=== PATIENT | female | born 1960 | race Caucasian/White ===

== ENCOUNTER 2019-07-28 18:31 | Emergency (ER) | payer OTHER, SELFPAY ==
[2019-07-28] VITALS (9 sets, daily range): BP systolic 124–217; BP diastolic 71–97; PULSE 69–98; RESP 14–24; TEMP 37.1; O2SAT 96–99; BMI 32.0
--- NOTE | 2019-07-28 18:36 | DI.RAD.S_ITS ---
PROCEDURE: XR CHEST 1V INDICATIONS: chest pain TECHNIQUE: One view of the chest was acquired. COMPARISON: None. FINDINGS: Surgical changes and devices: None. Lungs and pleura: Lungs are clear. No pleural effusions or pneumothorax. Mediastinum: Mediastinal contours appear normal. Heart size is normal. Bones and chest wall: No suspicious bony lesions. Overlying soft tissues appear unremarkable. IMPRESSION: No acute cardiopulmonary disease Dictated by: Khai Titus M.D. on 07/28/2019 at 18:55 Approved by: Khai Titus M.D. on 07/28/2019 at 18:56
--- NOTE | 2019-07-28 19:00 | ED_ITS ---
HPI - Chest Pain General Chief Complaint: Chest Pain Stated Complaint: CP Time Seen by Provider: 07/28/19 18:40 Source: patient Mode of arrival: Family Vehicle Limitations: no limitations History of Present Illness HPI narrative: 58-year-old female smoker with history of hypertension and hyperlipidemia presents with her in the chief complaint of increasing frequency of episodes of anterior chest pressure with radiation to left shoulder and at times right shoulder. She denies any exertional provocation and denies any palliation, admits only to the radiation stated above. Patient had provocative testing about a year and a half ago which turned out well. She did have a DVT in the aftermath of the surgery years ago but denies any history of pulmonary embolism. She is not dizzy, weak or lightheaded. She exercises frequently and denies any exertional dyspnea or profound fatigue worsening over the past days to weeks. Currently her pressure is 8/10 MD complaint: chest pain Onset (ago): day(s) Duration: intermittent and progressively worsening Pain location: substernal and left chest Severity: moderate Quality: tightness and aching Pain radiation: RUE and LUE Relieving factors: nothing Exacerbating factors: nothing Treatments prior to arrival chest pain: none Related Data On Oral Contraceptives: No Allergies Allergy/AdvReac Type Severity Reaction Status Date / Time Sulfa (Sulfonamide Allergy Swelling Verified 07/28/19 18:44 Antibiotics) of Lip/Tongue/Throat Review of Systems Constitutional Constitutional: Denies chills, Denies fatigue, Denies fever(s), Denies frequent falls, Denies lethargy and Denies weakness Eyes Eyes: Denies change in vision, Denies eye discharge, Denies irritation and Denies loss of vision ENT Ears, Nose, Mouth, and Throat: Denies change in voice, Denies dizziness, Denies neck pain, Denies sore throat and Denies throat swelling Cardiovascular Cardiovascular: Reports chest pain, Denies irregular heart rhythm, Denies lightheadedness, Denies palpitations, Denies dyspnea, Denies dyspnea on exertion and Denies orthopnea Respiratory Respiratory: Denies cough, Denies dyspnea, Denies dyspnea on exertion and Denies wheezing Gastrointestinal Gastrointestinal: Denies abdominal pain, Denies change in bowel habits, Denies diarrhea, Denies nausea and Denies vomiting Genitourinary Genitourinary: Denies hematuria, Denies flank pain, Denies urinary incontinence and Denies urinary urgency Musculoskeletal Musculoskeletal: Denies back pain, Denies muscle weakness, Denies neck pain, Denies numbness and Denies tingling Integumentary/Breasts Skin/Breast: Denies pruritus, Denies erythema, Denies rash and Denies wounds Neurologic Neurologic: Denies behavioral changes, Denies confusion, Denies dizziness, Denies frequent falls, Denies loss of vision, Denies numbness, Denies tingling and Denies weakness Psychiatric Psychiatric: Denies anxiety, Denies behavioral changes, Denies confusion, Denies depression, Denies homicidal ideation and Denies suicidal ideation Endocrine Endocrine: Denies fatigue, Denies flushing and Denies palpitations Hematologic/Lymphatic Hematologic/Lymphatic: Denies easy bruising Allergic/Immunologic Allergic/Immunologic: Denies urticaria, Denies throat swelling and Denies wheezing Patient History Social History Smoking Status: Current some day smoker Smoking Status: Current some day smoker alcohol intake frequency: 0-2 drinks per day Substance Use Type: does not use Exam Narrative Exam Narrative: GENERAL: [58] year old patient appears stated age. Well- nourished, well-developed patient, in mild distress. HEAD: Atraumatic. Normocephalic. EYES: Pupils equal round and reactive. Extraocular motions intact. No scleral icterus. No injection or drainage. ENT: Nose without bleeding, purulent drainage. Throat without erythema, tonsillar hypertrophy or exudate. Airway patent. NECK: Trachea midline. Non tender CARDIOVASCULAR: Regular rate and rhythm without murmurs, gallops, or rubs. RESPIRATORY: Clear to auscultation. Breath sounds equal bilaterally. No wheezes, rales, or rhonchi. GASTROINTESTINAL: Abdomen soft, non-tender, nondistended. EXTREMITIES: No edema or joint tenderness. BACK: Nontender without deformity or crepitance. No flank tenderness. NEURO: AOx3. SKIN: No rash or erythema of visible areas Initial Vital Signs Initial Vital Signs: Vital Signs Temperature 98.7 F 07/28/19 18:38 Pulse Rate 98 H 07/28/19 18:38 Respiratory Rate 19 07/28/19 18:38 Blood Pressure 185/91 H 07/28/19 18:38 Pulse Oximetry 99 07/28/19 18:38 Course Orders Ordered: Discontinued Medications Aspirin (Aspirin Chew) 324 mg PO NOW ONE Stop: 07/28/19 19:21 Last Admin: 07/28/19 19:32 Dose: 324 mg Documented by: GLENN Clopidogrel Bisulfate (Plavix) 300 mg PO NOW ONE Stop: 07/28/19 20:04 Last Admin: 07/28/19 20:13 Dose: 300 mg Documented by: GLENN Heparin Sodium (Porcine) (Heparin) 4,000 unit IV NOW ONE Stop: 07/28/19 19:41 Last Admin: 07/28/19 19:52 Dose: 4,000 unit Documented by: GLENN Heparin Sodium/Dextrose (Heparin Drip) 25,000 unit in 500 mls @ 19.051 mls/hr IV CONT JULIANNE; Protocol Last Titration: 07/28/19 21:50 Dose: 12 units/kg/hr, 19.051 mls/hr Documented by: Admin: 07/28/19 19:53 Dose: 12 units/kg/hr, 19.051 mls/hr Documented by: GLENN Metoprolol Tartrate (Lopressor) 5 mg IV Q5M JULIANNE Stop: 07/28/19 19:41 Last Admin: 07/28/19 19:34 Dose: 5 mg Documented by: GLENN Metoprolol Tartrate (Lopressor) 25 mg PO NOW ONE Stop: 07/28/19 20:04 Last Admin: 07/28/19 21:01 Dose: 25 mg Documented by: GLENN Nitroglycerin (Nitrostat) 0.4 mg SL [id number] PRN PRN Reason: Chest Pain Last Admin: 07/28/19 19:42 Dose: 0.4 mg Documented by: Admin: 07/28/19 19:32 Dose: 0.4 mg Documented by: GLENN Nitroglycerin (Nitro-Bid) 0.5 inch TOP NOW ONE Stop: 07/28/19 20:04 Last Admin: 07/28/19 20:13 Dose: 0.5 inch Documented by: GLENN Reevaluation(s) Reevaluation #1: patient improved pain after NG, down to 6 pain down to zero after 3rd NG and paste Consultations Consultation #1: Call to [facility] hospitalist. Given concerning story, consistent with unstable angina patient will require inpatient Cardiology and very likely heart catheterization Consultation #2: Call to on-call Cardiology, he agrees with assessment, recommends patient be sent to [facility]. Recommends heparin, Plavix, oral metoprolol in addition to the above-stated therapies Consultation #3: Hospitalist at [facility] happy to accept Vital Signs Vital signs: Vital Signs - 8 hr 07/28/19 18:38 07/28/19 19:32 07/28/19 19:42 Temperature 98.7 F Pulse Rate 98 H 95 H Respiratory Rate 19 Blood Pressure 185/91 H 217/97 H 160/84 H Blood Pressure [Left Arm] Pulse Oximetry 99 07/28/19 19:59 07/28/19 20:13 07/28/19 21:00 Temperature Pulse Rate 74 79 73 Respiratory Rate 16 24 Blood Pressure 174/91 H Blood Pressure [Left Arm] 149/81 H 124/71 Pulse Oximetry 98 96 07/28/19 21:05 07/28/19 21:15 Temperature Pulse Rate 72 69 Respiratory Rate 21 14 Blood Pressure Blood Pressure [Left Arm] 138/88 142/81 H Pulse Oximetry 97 96 MDM - Chest Pain Lab Data Result diagrams: 07/28/19 18:56 07/28/19 18:56 Labs: Lab Results 07/28/19 07/28/19 07/28/19 Range/Units 18:05 18:56 18:56 WBC 7.8 (4.5-11.0) X10^3/uL RBC 4.28 (4.0-5.2) X10^6/uL Hgb 13.6 (12.0-16.0) g/dL Hct 39.2 (36-46) % MCV 91.4 (80-100) fL MCH 31.7 (26-34) PG MCHC 34.7 (30-36) % RDW 13.1 (11.6-14.8) % Plt Count 243 (150-400) X10^3/uL Neut % (Auto) 65.8 (50-75) % Lymph % (Auto) 27.6 (25-40) % Surry % (Auto) 5.6 (3-14) % Eos % (Auto) 0.6 L (2-4) % Baso % (Auto) 0.4 (0-2) % Neut # (Auto) 5100 (8954-8499) /uL Lymph # (Auto) 2100 (8141-2714) /uL Surry # (Auto) 400 (0-900) /uL Eos # (Auto) 100 (0-450) /uL Baso # (Auto) 0 (0-100) /uL PT 11.1 (10.1-12.7) SECONDS INR 1.0 (0.9-1.3) APTT 30 (26.4-36.2) SECONDS D-Dimer 251 H (<230) ng/mL Sodium (137-145) mmol/L Potassium (3.4-5.1) mmol/L Chloride (98-107) mmol/L Carbon Dioxide (22-32) mmol/L BUN (7-17) mg/dL Creatinine (0.52-1.04) mg/dL Estimated GFR (>60) mL/min BUN/Creatinine Ratio (6-22) Glucose (70-100) mg/dL Calcium (8.4-10.2) mg/dL Total Bilirubin (0.2-1.3) mg/dL AST (14-36) IU/L ALT (<35) IU/L Alkaline Phosphatase (38-126) U/L Total Creatine Kinase (30-135) U/L CK-MB (CK-2) (<2.37) ng/mL CK-MB (CK-2) Rel Index (1.5-5.0) % Troponin I (0.01-0.034) ng/mL Total Protein (6.3-8.2) g/dL Albumin (3.5-5.0) g/dL Globulin (1.7-4.1) g/dL Albumin/Globulin Ratio (1.0-2.8) Lipase (23-300) U/L 07/27/ Range/Units 18:56 WBC (4.5-11.0) X10^3/uL RBC (4.0-5.2) X10^6/uL Hgb (12.0-16.0) g/dL Hct (36-46) % MCV (80-100) fL MCH (26-34) PG MCHC (30-36) % RDW (11.6-14.8) % Plt Count (150-400) X10^3/uL Neut % (Auto) (50-75) % Lymph % (Auto) (25-40) % Surry % (Auto) (3-14) % Eos % (Auto) (2-4) % Baso % (Auto) (0-2) % Neut # (Auto) (8891-6295) /uL Lymph # (Auto) (7303-0176) /uL Surry # (Auto) (0-900) /uL Eos # (Auto) (0-450) /uL Baso # (Auto) (0-100) /uL PT (10.1-12.7) SECONDS INR (0.9-1.3) APTT (26.4-36.2) SECONDS D-Dimer (<230) ng/mL Sodium 138 (137-145) mmol/L Potassium 4.1 (3.4-5.1) mmol/L Chloride 104 (98-107) mmol/L Carbon Dioxide 26 (22-32) mmol/L BUN 17 (7-17) mg/dL Creatinine 0.93 (0.52-1.04) mg/dL Estimated GFR > 60.0 (>60) mL/min BUN/Creatinine Ratio 18.3 (6-22) Glucose 133 H (70-100) mg/dL Calcium 9.5 (8.4-10.2) mg/dL Total Bilirubin 0.2 (0.2-1.3) mg/dL AST 28 (14-36) IU/L ALT 17 (<35) IU/L Alkaline Phosphatase 73 (38-126) U/L Total Creatine Kinase 109 (30-135) U/L CK-MB (CK-2) 0.78 (<2.37) ng/mL CK-MB (CK-2) Rel Index 0.7 L (1.5-5.0) % Troponin I < 0.012 (0.01-0.034) ng/mL Total Protein 7.6 (6.3-8.2) g/dL Albumin 4.4 (3.5-5.0) g/dL Globulin 3.2 (1.7-4.1) g/dL Albumin/Globulin Ratio 1.4 (1.0-2.8) Lipase 85 (23-300) U/L ECG Data Interpretation: EKG is normal sinus rhythm rate [ 96] and free of any signs of ischemia or ectopy. No ST segmental elevation or depression. No T wave inversions EKG is normal sinus rhythm rate [83 ] and free of any signs of ischemia or ectopy. No ST segmental elevation or depression. No T wave inversions Discharge Plan Departure Patient Disposition: [facility] Clinical Impression: Unstable angina pectoris Discharge Date/Time: 07/28/19 21:50
[2019-07-28 19:08] LABS: Add Manual Diff / Slide Review NO; Basophils Absolute Auto 0 /uL (0-100); Basophils Percent Auto 0.4 % (0-2); Eosinophils Absolute Auto 100 /uL (0-450); Eosinophils Percent Auto 0.6 % (2-4); Hematocrit 39.2 % (36-46); Hemoglobin 13.6 g/dL (12.0-16.0); Lymphocytes Absolute Auto 2100 /uL (1100-4500); Lymphocytes Percent Auto 27.6 % (25-40); Mean Corpuscular HGB Conc 34.7 % (30-36); Mean Corpuscular Hemoglobin 31.7 PG (26-34); Mean Corpuscular Volume 91.4 fL (80-100); Monocytes Absolute Auto 400 /uL (0-900); Monocytes Percent Auto 5.6 % (3-14); Neutrophils Absolute Auto 5100 /uL (1500-7000); Neutrophils Percent Auto 65.8 % (50-75); Platelet Count 243 X10^3/uL (150-400); Red Blood Cell Count 4.28 X10^6/uL (4.0-5.2); Red Cell Distribution Width 13.1 % (11.6-14.8); White Blood Cell Count 7.8 X10^3/uL (4.5-11.0)
[2019-07-28 19:25] LABS: Prothrombin Time 11.1 SECONDS (10.1-12.7)
[2019-07-28 19:27] LABS: Alanine Aminotransferase 17 IU/L (<35); Albumin 4.4 g/dL (3.5-5.0); Albumin Globulin Ratio 1.4 (1.0-2.8); Alkaline Phosphatase 73 U/L (38-126); Aspartate Aminotransferase 28 IU/L (14-36); BUN Creatinine Ratio 18.3 (6-22); Bilirubin Total 0.2 mg/dL (0.2-1.3); Blood Urea Nitrogen 17 mg/dL (7-17); Calcium 9.5 mg/dL (8.4-10.2); Carbon Dioxide 26 mmol/L (22-32); Chloride 104 mmol/L (98-107); Creatine Kinase 109 U/L (30-135); Estimated Glomerular Filt Rate > 60.0 mL/min (>60); Globulin 3.2 g/dL (1.7-4.1); Glucose 133 mg/dL (70-100); HEMOLYSIS < 15 (0-50); Lipase 85 U/L (23-300); Potassium 4.1 mmol/L (3.4-5.1); Sodium 138 mmol/L (137-145); Total Protein 7.6 g/dL (6.3-8.2)
[2019-07-28 19:28] LABS: PTT Partial Thromboplastin Tim 30 SECONDS (26.4-36.2)
[2019-07-28 19:29] LABS: D Dimer 251 ng/mL (<230)
[2019-07-28] MEDS: ASPIRIN 81 MG CHEW TAB 324 MG PO (19:32)
[2019-07-28] MEDS: NITROGLYCERIN 0.4 MG SL TAB SL ×2 (19:32→19:42)
[2019-07-28] MEDS: METOPROLOL TARTRATE 5 MG/5 ML INJ IV (19:34)
[2019-07-28 19:39] LABS: Troponin I < 0.012 ng/mL (0.01-0.034)
[2019-07-28 19:42] LABS: CKMB % Relative Index 0.7 % (1.5-5.0); Creatine Kinase MB 0.78 ng/mL (<2.37)
[2019-07-28] MEDS: HEPARIN 5,000 UNIT/ML VIAL 4000 UNIT IV (19:52)
[2019-07-28] MEDS: HEPARIN DRIP 25,000 UNIT/500 ML IV.SOLN 19.051 UNIT IV (19:53)
[2019-07-28] MEDS: CLOPIDOGREL 75 MG TABLET 300 MG PO (20:13)
[2019-07-28] MEDS: NITROGLYCERIN OINT 1 INCH/GM OINT...G. 0.5 INCH TOP (20:13)
[2019-07-28] MEDS: METOPROLOL IR 25 MG TABLET PO (21:01)
== END 2019-07-28 21:50 | disposition short-term general hospital (02) ==
PROVIDERS: Emergency Provider Emergency Medicine
DX: I20.0 Unstable angina (principal); I10 Essential (primary) hypertension; E78.5 Hyperlipidemia, unspecified
CPT/HCPCS: 36415; 71045; 80053; 82550; 82553; 83690; 84484; 85025; 85379; 85610; 85730; 93005; 96365; 96366; 96375; 99285; J1644